=== PATIENT | male | born 1985 | race African-American/Black ===

== ENCOUNTER 2016-05-31 15:17 | Emergency (ER) | payer OTHER ==
[2016-05-31 15:25] VITALS: RESP 18
[2016-05-31] MEDS ORDERED: SODIUM CHLORIDE 0.9% 1,000 ML IV STA (15:37)
[2016-05-31] MEDS ORDERED: ONDANSETRON 4 MG/2 ML VIAL IVP STA (15:37)
[2016-05-31] MEDS ORDERED: SODIUM CHLORIDE 0.9% 500 ML IV STA (15:37)
[2016-05-31] MEDS ORDERED: PANTOPRAZOLE 40 MG/10 ML VIAL IVP STA (15:37)
--- NOTE | 2016-05-31 15:59 | ED ---
General Adult HPI - General Chief complaint: Abdominal Pain Stated complaint: abdominal pain/muscles cramping Time Seen by Provider: 05/31/16 15:27 Source: patient, RN notes reviewed, old records reviewed Mode of arrival: ambulatory Limitations: no limitations - History of Present Illness Initial comments: Chief complaint and history of present illness a 31-year-old male to complaint of nausea vomiting no fever no diarrhea. Ongoing and getting progressively worse over the past one half day. Patient reports [place] 4 months ago he did have an episode or rhabdomyolysis because of over straining. 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 Patient also reports he obtained hepatitis C from a who had it. Denies IV drug abuse. The patient's also complaining of occasional on-again off -again discomfort to his right hand reports she was diagnosed with carpal tunnel. States he had renal failure associated with the rhabdomyolysis 4 months ago and has been increasing fluids and lately. Pain is generalized, muscle aches and pains. - Related Data Previous Rx's Medication Instructions Recorded Ondansetron [Zofran] 4 mg PO Q8HR PRN #10 tab 05/31/16 Allergies Allergy/AdvReac Type Severity Reaction Status Date / Time No Known Allergies Allergy Verified 05/31/16 15:24 Review of Systems ROS Statement: Those systems with pertinent positive or pertinent negative responses have been documented in the HPI. Review of systems no headache or visual acuity changes generalized muscle aches and pains throughout the body. Nausea and vomiting. Denies any fever. Denies any neuro deficits. All systems are reviewed. Past medical problems as noted above rhabdomyolysis, hep C but no treatment. Carpal tunnel. Renal failure from rhabdomyolysis 4 months ago. Surgeries tonsils and adenoids. Family history hypertension. Grandmother had cancer of unknown type. The patient's ALLERGIES none. He does smoke half pack per day strongly encouraged to stop drinks 3 times weekly. Again advised not to drink alcohol because of his hepatitis C problems. He states she's not been following up like he should get hepatitis C treated. " ROS Other: All systems not noted in ROS Statement are negative. Past Medical History Past Medical History: No Reported History Additional Past Medical History / Comment(s): Hepatitis C History of Any Multi-Drug Resistant Organisms: None Reported Past Surgical History: Adenoidectomy, Tonsillectomy Past Psychological History: No Psychological Hx Reported Smoking Status: Current every day smoker Past Alcohol Use History: Occasional Past Drug Use History: Marijuana General Exam - General Exam Comments Initial Comments: General: The patient is awake and alert, complaining of muscle aches and pains throughout the whole body. Nausea and vomiting for the past 12 hours. Denies any fever or diarrhea. Did not get his flu shot this year. Vital signs show temperature 90.1 pulse 117 respiratory rate 18 pulse ox 97% room air blood pressure 141/ 103. As a be rechecked while in emergency room. Eye: Pupils are equal, round and reactive to light, extra-ocular movements are intact ; there is normal conjunctiva bilaterally. No signs of icterus. Ears, nose, mouth and throat: There are moist mucous membranes and no oral lesions. Neck: The neck is supple, there is no tenderness , no anterior cervical lymphadenopathy. Cardiovascular: Tachycardic heart rate. 117.. No murmur, rub or gallop is appreciated. Respiratory: Lungs are clear to auscultation, respirations are non-labored, breath sounds are equal. No wheezes, stridor, rales, or rhonchi. Gastrointestinal: Soft, non-distended, non-tender abdomen without masses or organomegaly noted. There is no rebound or guarding present. No CVA tenderness. Bowel sounds are unremarkable. Back: There is no tenderness to palpation in the midline. There is no obvious deformity. No rashes noted. Musculoskeletal: Normal ROM, no tenderness, There is no pedal edema. There is no calf tenderness or swelling. Sensation intact. Pulses equal bilaterally 2+. Neurological: CN II-XII intact, There are no obvious motor or sensory deficits. Coordination appears grossly intact. Speech is normal. No neuro deficits appreciated. Skin: Skin is warm and dry and no rashes or lesions are noted. No rashes Limitations: no limitations Course Vital Signs 05/31/16 15:20 Temperature 98.1 F Pulse Rate 117 H Respiratory 18 Rate Blood Pressure 141/103 O2 Sat by Pulse 97 Oximetry Medical Decision Making - Medical Decision Making Medical decision making; patient's white count 12 hemoglobin 18 hematocrit 54, AST and ALT are elevated. Amylase and lipase within normal limits. The patient 's potassium is 3.7 BUN 19 creatinine elevated 1.58 GFR greater than 60. Glucose 117. X-rays of the abdomen were done and reviewed by radiologist his impression is no bowel structure or pneumoperitoneum. Lung bases are clear. There are calcification superimposed over the left and right paraspinal location. The larger of the 2 on the left measures approximately 6 mm. On the right approximately 1 mm calcifications present at the L3-L4 disc space low. Impression possible ureterolithiasis, nephrolithiasis. As read by Dr. Wright Influenza AB reported to be negative by laboratory assessment. The patient's urine shows 134 casts, 2 reds and 2 whites. The drug screen was positive for opiates, cocaine, marijuana, amphetamines. Patient admits to the drugs found in the urine. Strongly encouraged to follow- up family physician and/or rehab as needed. Suggest the patient's [facility] for continued rehydration patient states he can rehydrate at home. He' ll will be given a prescription for Zofran so he can keep his fluids down. Advised to use water not just sweet drinks. Advised to call follow up with his family physician this Thursday. Or return emergency room as needed - Lab Data Result diagrams: 05/31/16 15:56 05/31/16 15:56 Lab Results 05/31/16 05/31/16 05/31/16 Range/Units 15:56 15:56 15:56 WBC 12.7 H (3.8-10.6) k/uL RBC 6.02 H (4.30-5.90) m/uL Hgb 18.4 H (13.0-17.5) gm/dL Hct 54.7 H (39.0-53.0) % MCV 90.9 (80.0-100.0) fL MCH 30.6 (25.0-35.0) pg MCHC 33.6 (31.0-37.0) g/dL RDW 13.3 (11.5-15.5) % Plt Count 243 (150-450) k/uL Neutrophils % 70 % Lymphocytes % 22 % Monocytes % 5 % Eosinophils % 1 % Basophils % 1 % Neutrophils # 8.9 H (1.3-7.7) k/uL Lymphocytes # 2.8 (1.0-4.8) k/uL Monocytes # 0.7 (0-1.0) k/uL Eosinophils # 0.1 (0-0.7) k/uL Basophils # 0.1 (0-0.2) k/uL Sodium 144 (137-145) mmol/L Potassium 3.7 (3.5-5.1) mmol/L Chloride 98 (98-107) mmol/L Carbon Dioxide 24 (22-30) mmol/L Anion Gap 22 mmol/L BUN 19 (9-20) mg/dL Creatinine 1.58 H (0.66-1.25) mg/dL Est GFR (MDRD) Af Amer >60 (>60 ml/min/1.73 sqM) Est GFR (MDRD) Non-Af 51 (>60 ml/min/1.73 sqM) Glucose 117 H (74-99) mg/dL Plasma Lactic Acid Med (0.7-2.0) mmol/L Calcium 11.1 H (8.4-10.2) mg/dL Total Bilirubin 0.8 (0.2-1.3) mg/dL AST 67 H (17-59) U/L ALT 86 H (21-72) U/L Alkaline Phosphatase 94 (38-126) U/L Total Creatine Kinase 519 H (55-170) U/L CK-MB (CK-2) 3.1 H* (0.0-2.4) ng/mL CK-MB (CK-2) Rel Index 0.6 Troponin I <0.012 (0.000-0.034) ng/mL Total Protein 10.2 H (6.3-8.2) g/dL Albumin 5.4 H (3.5-5.0) g/dL Amylase 78 (30-110) U/L Lipase 44 (23-300) U/L Urine Color Urine Appearance (Clear) Urine pH (5.0-8.0) Ur Specific [place] (1.001-1.035) Urine Protein (Negative) Urine Glucose (UA) (Negative) Urine Ketones (Negative) Urine Blood (Negative) Urine Nitrate (Negative) Urine Bilirubin (Negative) Urine Urobilinogen (<2.0) mg/dL Ur Leukocyte Esterase (Negative) Urine RBC (0-5) /hpf Urine WBC (0-5) /hpf Urine Bacteria (None) /hpf Hyaline Casts (0-2) /lpf Granular Casts (0) /lpf Urine Mucus (None) /hpf Urine Opiates Screen (NotDetected) Ur Oxycodone Screen (NotDetected) Urine Methadone Screen (NotDetected) Ur Propoxyphene Screen (NotDetected) Ur Barbiturates Screen (NotDetected) U Tricyclic Antidepress (NotDetected) Ur Phencyclidine Scrn (NotDetected) Ur Amphetamines Screen (NotDetected) U Methamphetamines Scrn (NotDetected) U Benzodiazepines Scrn (NotDetected) Urine Cocaine Screen (NotDetected) U Marijuana (THC) Screen (NotDetected) Influenza Type A RNA (Not Detectd) Influenza Type B (PCR) (Not Detectd) 05/31/16 05/31/16 05/31/16 Range/Units 15:56 17:03 17:10 WBC (3.8-10.6) k/uL RBC (4.30-5.90) m/uL Hgb (13.0-17.5) gm/dL Hct (39.0-53.0) % MCV (80.0-100.0) fL MCH (25.0-35.0) pg MCHC (31.0-37.0) g/dL RDW (11.5-15.5) % Plt Count (150-450) k/uL Neutrophils % % Lymphocytes % % Monocytes % % Eosinophils % % Basophils % % Neutrophils # (1.3-7.7) k/uL Lymphocytes # (1.0-4.8) k/uL Monocytes # (0-1.0) k/uL Eosinophils # (0-0.7) k/uL Basophils # (0-0.2) k/uL Sodium (137-145) mmol/L Potassium (3.5-5.1) mmol/L Chloride (98-107) mmol/L Carbon Dioxide (22-30) mmol/L Anion Gap mmol/L BUN (9-20) mg/dL Creatinine (0.66-1.25) mg/dL Est GFR (MDRD) Af Amer (>60 ml/min/1.73 sqM) Est GFR (MDRD) Non-Af (>60 ml/min/1.73 sqM) Glucose (74-99) mg/dL Plasma Lactic Acid Med 1.2 (0.7-2.0) mmol/L Calcium (8.4-10.2) mg/dL Total Bilirubin (0.2-1.3) mg/dL AST (17-59) U/L ALT (21-72) U/L Alkaline Phosphatase (38-126) U/L Total Creatine Kinase (55-170) U/L CK-MB (CK-2) (0.0-2.4) ng/mL CK-MB (CK-2) Rel Index Troponin I (0.000-0.034) ng/mL Total Protein (6.3-8.2) g/dL Albumin (3.5-5.0) g/dL Amylase (30-110) U/L Lipase (23-300) U/L Urine Color Yellow Urine Appearance Cloudy (Clear) Urine pH 5.5 (5.0-8.0) Ur Specific [place] 1.021 (1.001-1.035) Urine Protein 1+ H (Negative) Urine Glucose (UA) Negative (Negative) Urine Ketones Trace H (Negative) Urine Blood Negative (Negative) Urine Nitrate Negative (Negative) Urine Bilirubin Negative (Negative) Urine Urobilinogen 3.0 (<2.0) mg/dL Ur Leukocyte Esterase Negative (Negative) Urine RBC 2 (0-5) /hpf Urine WBC 2 (0-5) /hpf Urine Bacteria Occasional H (None) /hpf Hyaline Casts 134 H (0-2) /lpf Granular Casts 3 (0) /lpf Urine Mucus Occasional H (None) /hpf Urine Opiates Screen Detected H (NotDetected) Ur Oxycodone Screen Not Detected (NotDetected) Urine Methadone Screen Not Detected (NotDetected) Ur Propoxyphene Screen Not Detected (NotDetected) Ur Barbiturates Screen Not Detected (NotDetected) U Tricyclic Antidepress Not Detected (NotDetected) Ur Phencyclidine Scrn Not Detected (NotDetected) Ur Amphetamines Screen Detected H (NotDetected) U Methamphetamines Scrn Not Detected (NotDetected) U Benzodiazepines Scrn Not Detected (NotDetected) Urine Cocaine Screen Detected H (NotDetected) U Marijuana (THC) Screen Detected H (NotDetected) Influenza Type A RNA Not Detected (Not Detectd) Influenza Type B (PCR) Not Detected (Not Detectd) Disposition Clinical Impression: Nausea & vomiting Disposition: HOME SELF-CARE Condition: Fair Instructions: Acute Nausea and Vomiting (ED) Additional Instructions: Use Zofran and increase fluid intake. Do not take any illegal drugs. Follow- up with your family physician in 2 days or return emergency room. Prescriptions: Ondansetron [Zofran] 4 mg PO Q8HR PRN #10 tab PRN Reason: Nausea Time of Disposition: 18:32
[2016-05-31 16:15] LABS: Basophils # (A) 0.1 k/uL (0-0.2); Basophils % (A) 1 %; CH 31.7; CHCM 35.1; Eosinophils # (A) 0.1 k/uL (0-0.7); Eosinophils % (A) 1 %; HCT 54.7 % (39.0-53.0); HDW 2.75; HGB 18.4 gm/dL (13.0-17.5); Luc # (Auto) 0.15; Luc % (Auto) 1; Lymphocytes # (A) 2.8 k/uL (1.0-4.8); Lymphocytes % (A) 22 %; MCH 30.6 pg (25.0-35.0); MCHC 33.6 g/dL (31.0-37.0); MCV 90.9 fL (80.0-100.0); Mean Platelet Volume 7.8; Monocytes # (A) 0.7 k/uL (0-1.0); Monocytes % (A) 5 %; Neutrophils # (A) 8.9 k/uL (1.3-7.7); Neutrophils % (A) 70 %; RBC 6.02 m/uL (4.30-5.90); RDW 13.3 % (11.5-15.5); WBC 12.7 k/uL (3.8-10.6); WBC (Perox) 12.64
[2016-05-31 16:25] LABS: ALT 86 U/L (21-72); AST 67 U/L (17-59); Alkaline Phosphatase 94 U/L (38-126); Amylase 78 U/L (30-110); Anion Gap 22 mmol/L; Blood Urea Nitrogen 19 mg/dL (9-20); Calcium 11.1 mg/dL (8.4-10.2); Carbon Dioxide 24 mmol/L (22-30); Chloride 98 mmol/L (98-107); Glucose 117 mg/dL (74-99); Non-African American GFR(MDRD) 51 (>60 ml/min/1.73 sqM); Potassium 3.7 mmol/L (3.5-5.1); Sodium 144 mmol/L (137-145); Total Bilirubin 0.8 mg/dL (0.2-1.3); Total Protein 10.2 g/dL (6.3-8.2)
[2016-05-31 16:36] LABS: Creatine Kinase 519 U/L (55-170)
--- NOTE | 2016-05-31 16:40 | XR ---
2 view abdomen HISTORY: Pain 2 views of the abdomen, no comparisons No bowel obstruction or pneumoperitoneum. Lung bases are clear. There are calcifications superimposed over the left and right paraspinal location. The larger of the 2 on the left measures approximately 6 mm, on the right approximately 1 mm calcification present at the L3-4 disc space level IMPRESSION: Possible ureterolithiasis, nephrolithiasis.
[2016-05-31 16:49] LABS: Troponin I <0.012 ng/mL (0.000-0.034)
[2016-05-31 16:57] LABS: Creatine Kinase MB 3.1 ng/mL (0.0-2.4)
[2016-05-31 17:22] LABS: Appearance,Urine Cloudy (Clear); Bacteria,Urine Occasional /hpf; Bilirubin,Urine Negative (Negative); Glucose,Urine (UA) Negative (Negative); Granular Casts,Urine 3 /lpf (0); Ketones,Urine Trace (Negative); Leukocyte Esterase,Urine Negative (Negative); Mucus,Urine Occasional /hpf; Nitrite,Urine Negative (Negative); PH, Urine 5.5 (5.0-8.0); Particle Count 15544; Protein,Urine 1+ (Negative); RBC,Urine 2 /hpf (0-5); Specific Gravity,Urine 1.021 (1.001-1.035); UA Billing (MACRO vs. MICRO) MICRO; WBC,Urine 2 /hpf (0-5)
--- NOTE | 2016-05-31 18:16 | CT ---
EXAMINATION TYPE: CT abdomen pelvis w con DATE OF EXAM: 05/31/2016 5:39 PM COMPARISON: Abdomen same date HISTORY: Bilateral flank pain. CT DLP: 418.40 mGycm Automated exposure control for dose reduction was used. TECHNIQUE: Helical acquisition of images was performed from the lung bases through the pelvis. CONTRAST: Performed without Oral Contrast and with IV Contrast, patient injected with 80 mL of Visipaque 320. FINDINGS: The plain film findings are likely direct sales representative of medications within the bowel. LUNG BASES: No significant abnormality is appreciated. LIVER/GB: No significant abnormality is appreciated. PANCREAS: No significant abnormality is seen. SPLEEN: No significant abnormality is seen. ADRENALS: No significant abnormality is seen. KIDNEYS: No significant abnormality is seen. RETROPERITONEAL ADENOPATHY: None visualized REPRODUCTIVE ORGANS: No significant abnormality is seen URINARY BLADDER: No significant abnormality is seen. PELVIC ADENOPATHY: None visualized. OSSEOUS STRUCTURES: No significant abnormality is seen. BOWEL: No significant abnormality is seen. OTHER: Probable phleboliths within the pelvis. IMPRESSION: NO SIGNIFICANT ABNORMALITY IS EVIDENT TO ACCOUNT FOR PATIENT'S SYMPTOMS. FOLLOW-UP INDICATED
[2016-05-31 18:44] VITALS: BP 138/82; PULSE 75; TEMP 98.9
== END 2016-05-31 18:43 | disposition home or self-care (01) ==
LOC: EC 15:17
DX: R11.2 Nausea with vomiting, unspecified (principal); R10.84 Generalized abdominal pain; F17.200 Nicotine dependence, unspecified, uncomplicated; Z86.19 Personal history of other infectious and parasitic diseases; B18.2 Chronic viral hepatitis C
CPT/HCPCS: 36415; 80053; 82150; 82550; 82553; 83605; 83690; 84484; 85025; 81001; 80306; 87086; 87502; 74020; 74177; 99285; 96374; 96375; 96361 ×3; Q9967; J2405; C9113

== ENCOUNTER → 2016-07-11 | Outpatient (CLI) | payer OTHER ==
[2016-07-11 14:22] LABS: Basophils # (A) 0.1 k/uL (0-0.2); Basophils % (A) 2 %; CHCM 33.6; Eosinophils # (A) 0.3 k/uL (0-0.7); Eosinophils % (A) 3 %; HCT 46.8 % (39.0-53.0); HDW 2.66; Luc # (Auto) 0.17; Luc % (Auto) 2; Lymphocytes # (A) 3.3 k/uL (1.0-4.8); Lymphocytes % (A) 37 %; MCH 30.5 pg (25.0-35.0); MCHC 32.9 g/dL (31.0-37.0); MCV 92.9 fL (80.0-100.0); Mean Platelet Volume 8.1; Monocytes # (A) 0.5 k/uL (0-1.0); Monocytes % (A) 6 %; Neutrophils # (A) 4.5 k/uL (1.3-7.7); Neutrophils % (A) 50 %; RBC 5.04 m/uL (4.30-5.90); RDW 13.1 % (11.5-15.5); WBC (Perox) 8.99
[2016-07-11 14:27] LABS: HGB 15.4 gm/dL (13.0-17.5)
[2016-07-11 14:39] LABS: ALT 55 U/L (21-72); AST 52 U/L (17-59); Alkaline Phosphatase 65 U/L (38-126); Anion Gap 9 mmol/L; Blood Urea Nitrogen 11 mg/dL (9-20); Calcium 9.4 mg/dL (8.4-10.2); Carbon Dioxide 28 mmol/L (22-30); Chloride 106 mmol/L (98-107); Cholesterol 182 mg/dL (<200); Glucose 83 mg/dL (74-99); HDL Cholesterol 61 mg/dL (40-60); Non-African American GFR(MDRD) >60 (>60 ml/min/1.73 sqM); Potassium 4.2 mmol/L (3.5-5.1); Sodium 143 mmol/L (137-145); Total Bilirubin 0.9 mg/dL (0.2-1.3); Total Protein 7.4 g/dL (6.3-8.2); Triglycerides 67 mg/dL (<150)
[2016-07-11 15:10] LABS: Hepatitis B Surface Ag Index 0.09
[2016-07-11 15:16] LABS: Hepatitis B Core IgM Index 0.05
[2016-07-11 15:30] LABS: Hepatitis C Virus IgG Ab Reactive (Negative)
== END ==
LOC: LABWHC1 13:59
PROVIDERS: ATTEND Family Medicine
DX: Z00.00 Encounter for general adult medical examination without abnormal findings (principal); B19.20 Unspecified viral hepatitis C without hepatic coma; Z13.21 Encounter for screening for nutritional disorder
CPT/HCPCS: 36415; 80053; 80061; 80074; 82306; 84443; 85025

== ENCOUNTER 2019-05-10 11:31 | Emergency (ER) | payer OTHER ==
[2019-05-10 12:17] VITALS: BP 128/72; PULSE 79; TEMP 98.2
[2019-05-10 12:46] VITALS: RESP 18
--- NOTE | 2019-05-10 13:10 | ED ---
Lower Extremity Injury HPI - General Chief Complaint: Extremity Injury, Lower Stated Complaint: lt ankle injury Time Seen by Provider: 05/10/19 12:14 Source: patient Mode of arrival: ambulatory Limitations: no limitations - History of Present Illness Initial Comments: Patient is a 34-year-old male here for left ankle pain after he rolled it yesterday. Patient states he was just walking like normal when he twisted his left ankle. He denies any previous injuries or surgeries on that ankle. Patient states he has been elevating it, icing and has a compression wrap on it but states he still having pain with walking today and wanted to make sure he did not fracture his ankle. He has no other complaints at this time. Upon arrival to the ER, his vital signs are stable. - Related Data Previous Rx's Medication Instructions Recorded Ondansetron [Zofran] 4 mg PO Q8HR PRN #10 tab 05/31/16 Allergies Allergy/AdvReac Type Severity Reaction Status Date / Time No Known Allergies Allergy Verified 05/10/19 12:17 Review of Systems ROS Statement: Those systems with pertinent positive or pertinent negative responses have been documented in the HPI. ROS Other: All systems not noted in ROS Statement are negative. Past Medical History Past Medical History: No Reported History Additional Past Medical History / Comment(s): Hepatitis C History of Any Multi-Drug Resistant Organisms: None Reported Past Surgical History: Adenoidectomy, Tonsillectomy Past Psychological History: No Psychological Hx Reported Smoking Status: Current every day smoker Past Alcohol Use History: Occasional Past Drug Use History: Marijuana General Exam - General Exam Comments Initial Comments: GENERAL: Well-appearing, well-nourished and in no acute distress. HEAD: Atraumatic, normocephalic. EYES: Pupils equal round and reactive to light, extraocular movements intact, sclera anicteric, conjunctiva are normal. ENT: Moist mucous membranes. NECK: Normal range of motion, supple without lymphadenopathy or JVD. LUNGS: Breath sounds clear to auscultation bilaterally and equal. No wheezes rales or rhonchi. HEART: Regular rate and rhythm without murmurs, rubs or gallops. ABDOMEN: Soft, nontender, normoactive bowel sounds. No guarding, no rebound. No masses appreciated. EXTREMITIES: Mild pain with palpation of the lateral malleolus of the left ankle, mild swelling present, mild bruising along the lateral malleolus. Patient does have slightly decreased range of motion secondary to pain of the left ankle. No pain in the left foot or lower leg. Neurovascular intact. No clubbing or cyanosis. SKIN: Warm, Dry, normal turgor, no rashes or lesions noted. Limitations: no limitations Course Vital Signs 05/10/19 12:16 Temperature 98.2 F Pulse Rate 79 Respiratory 18 Rate Blood Pressure 128/72 O2 Sat by Pulse 97 Oximetry Medical Decision Making - Medical Decision Making Patient is a 34-year-old male here for left ankle pain after rolling it yesterday while walking. No previous surgeries or trauma to the ankle. X-ray show no acute fractures of the ankle. I discussed the patient's most likely an ankle sprain. He will continue with ice, Motrin, elevation. He is in agreement with this plan of care. He stable for discharge at this time. He'll follow-up with PCP in one to 2 weeks if symptoms persist. Disposition Clinical Impression: Left ankle sprain Disposition: HOME SELF-CARE Condition: Stable Instructions (If sedation given, give patient instructions): Ankle Sprain (ED) Additional Instructions: Please return to the Emergency Department if symptoms worsen or any other concerns. Into knee with ice, elevation, compression. Follow up with PCP in 1 to 2 weeks if symptoms persist. Is patient prescribed a controlled substance at d/c from ED?: No Referrals: None,Stated [Primary Care Provider] - 1-2 days
--- NOTE | 2019-05-10 13:16 | XR ---
EXAMINATION TYPE: XR ankle complete LT DATE OF EXAM: 05/10/2019 COMPARISON: NONE HISTORY: Pain TECHNIQUE: 3 views of the left ankle are submitted for evaluation. FINDINGS: There is no evidence for fracture or dislocation. Ankle mortise is intact. Mild soft tissue swelling laterally. IMPRESSION: 1. No evidence for acute fracture.
== END 2019-05-10 14:08 | disposition home or self-care (01) ==
LOC: EC 11:31
DX: S93.402A Sprain of unspecified ligament of left ankle, initial encounter (principal); F17.200 Nicotine dependence, unspecified, uncomplicated; X50.1XXA Overexertion from prolonged static or awkward postures, initial encounter; Y93.01 Activity, walking, marching and hiking
CPT/HCPCS: 99283